=== PATIENT | female | born 1940 | race Caucasian/White ===

== ENCOUNTER 2018-01-12 11:00 | Emergency (ER) | payer MEDICARE, MEDICAID ==
[2018-01-12 11:46] LABS: BILIRUBIN,URINE NEGATIVE (NEGATIVE); GLUCOSE, URINE (UA) NEGATIVE (NEGATIVE); KETONES,URINE (UA) NEGATIVE (NEGATIVE); LEUKOCYTE ESTERASE, URINE SMALL (NEGATIVE); NITRITE,URINE NEGATIVE (NEGATIVE); OCCULT BLOOD,URINE NEGATIVE (NEGATIVE); PH,URINE 7.5 PH (5.0-7.5); PROTEIN,URINE NEGATIVE (NEGATIVE); UROBILINOGEN,URINE 0.2 (NORMAL) E.U./dL (NORMAL)
[2018-01-12 11:46] LABS: BASOPHILS # (AUTO) 0.1 10^3/uL (0.0-0.1); EOSINOPHILS # (AUTO) 0.2 10^3/uL (0.0-0.7); EOSINOPHILS % (AUTO) 2.7 %; HGB - HEMOGLOBIN 14.6 g/dL (12.0-16.0); LYMPHOCYTES # (AUTO) 2.2 10^3/uL (1.5-3.5); LYMPHOCYTES % (AUTO) 27.8 %; MEAN CORPUSCULAR HEMOGLOBIN 32.2 pg (27.0-31.0); MEAN CORPUSCULAR HGB CONC 34.5 g/dL (32.0-36.0); MEAN CORPUSCULAR VOLUME 93.4 fL (81.0-99.0); MEAN PLATELET VOLUME 7.8 fL (7.9-10.8); MONOCYTES # (AUTO) 0.5 10^3/uL (0.0-1.0); MONOCYTES % (AUTO) 6.2 %; NEUTROPHILS % (AUTO) 62.3 %; PLT - PLATELET COUNT 231 10^3/uL (130-450); RED BLOOD COUNT 4.54 10^6/uL (4.20-5.40); RED CELL DISTRIBUTION WIDTH 13.3 % (12.0-15.0)
[2018-01-12 11:57] LABS: BACTERIA,URINE Rare /HPF (None Seen); CLARITY,URINE CLEAR (CLEAR); RBC,URINE 0-5 /HPF (0-5); SQUAMOUS EPITHELIAL CELL,UR MOD Squamous (<= Few); STARCH,URINE PRESENT; WBC CLUMPS,URINE PRESENT
[2018-01-12 11:58] LABS: ALBUMIN 4.5 g/dL (3.2-5.5); ALBUMIN/GLOBULIN RATIO 1.5 (1.0-2.2); BILIRUBIN,TOTAL 0.7 mg/dL (0.2-1.0); CALCIUM 9.9 mg/dL (8.5-10.3); CREATININE 0.7 mg/dL (0.4-1.0); TOTAL PROTEIN 7.5 g/dL (6.7-8.2)
[2018-01-12] MEDS ORDERED: KETOROLAC 60 MG/2 ML VIAL IM STA (12:59)
[2018-01-12] MEDS ORDERED: cefTRIAXone 1 GM VIAL IM STA (12:59)
[2018-01-12] MEDS ORDERED: LIDOCAINE 1% 2 ML VIAL SUBQ ONE (12:59)
--- NOTE | 2018-01-12 13:13 | ED Physician Documentation ---
PD HPI ABD PAIN - Stated complaint Stated Complaint: R BACK/SIDE PX-LIGHT BOWEL MOVEMENT - Chief complaint Chief Complaint: Abd Pain - History obtained from History obtained from: Patient, Family - History of Present Illness Timing - onset: How many days ago (4) Timing - duration: Days (4) Timing - details: Gradual onset, Waxing and waning Pain level max: 9 Pain level now: 8 Quality: Aching, Pain Location: Other (R flank) Radiation: Other (non-radiating) Improved by: Other (nothing) Worsened by: Moving, Palpation Associated symptoms: No: Fever, Nausea, Vomiting, Hematemesis, Diarrhea, Constipation, Melena, Hematochezia, Dysuria, Hematuria, Chest pain, Dizzy Similar symptoms before: Has not had sx before Recently seen: Not recently seen Review of Systems Ten Systems: 10 systems reviewed and negative Constitutional: denies: Fever, Chills Ears: denies: Ear pain Nose: denies: Rhinorrhea / runny nose, Congestion Throat: denies: Sore throat Cardiac: denies: Chest pain / pressure Respiratory: denies: Cough GI: denies: Constipation, Diarrhea : denies: Dysuria Skin: denies: Rash Musculoskeletal: denies: Neck pain Neurologic: denies: Focal weakness, Numbness, Headache PD PAST MEDICAL HISTORY - Past Medical History Cardiovascular: Hypertension Endocrine/Autoimmune: Type 2 diabetes - Past Surgical History Past Surgical History: Yes /NURSE ORTHO: Dilation and currettage, 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 HEENT: Tonsil/Adenoidectomy - Present Medications Home Medications: Ambulatory Orders Medication Instructions Recorded Confirmed Ascorbic Acid [Vitamin C] 01/12/18 Cefdinir 300 mg PO BID #28 capsule 01/12/18 Cholecalciferol (Vitamin D3) 01/12/18 [Vitamin D3] Cholecalciferol (Vitamin D3) 01/12/18 [Vitamin D3] Cinnamon Bark [Cinnamon] 01/12/18 Lisinopril 10 mg PO 01/12/18 Magnesium 483 mg 01/12/18 Meloxicam [Mobic] 15 mg PO DAILY PRN #20 tablet 01/12/18 Potassium Gluconate 01/12/18 Ubidecarenone [Co Q-10] 100 mg PO DAILY 01/12/18 01/12/18 hydroCHLOROthiazide 25 mg PO DAILY 01/12/18 01/12/18 [Hydrochlorothiazide] - Allergies Allergies/Adverse Reactions: Allergies Allergy/AdvReac Type Severity Reaction Status Date / Time No Known Drug Allergies Allergy Verified 01/12/18 11:15 - Social History Does the pt smoke?: No Smoking Status: Never smoker Does the pt drink ETOH?: Yes Does the pt have substance abuse?: No - POLST Patient has POLST: No PD ED PE NORMAL - Vitals Vital signs reviewed: Yes - General General: Alert and oriented X 3, No acute distress, Well developed/nourished - HEENT HEENT: Moist mucous membranes - Neck Neck: Supple, no meningeal sign - Cardiac Cardiac: RRR - Respiratory Respiratory: No respiratory distress, Clear bilaterally - Abdomen Abdomen: Soft, Non tender, Non distended - Back Back: No spinal TTP, Other (R CVAT) - Derm Derm: Warm and dry - Neuro Neuro: Alert and oriented X 3 Results - Vitals Vitals: Vital Signs - 24 hr 01/12/18 11:05 Temperature 36.1 C L Heart Rate 90 Respiratory 20 Rate Blood Pressure 224/115 H O2 Saturation 100 Oxygen O2 Source Room air - Labs Labs: Laboratory Tests 01/12/18 01/12/18 01/12/18 11:37 11:37 11:38 WBC 8.0 RBC 4.54 Hgb 14.6 Hct 42.4 MCV 93.4 MCH 32.2 H MCHC 34.5 RDW 13.3 Plt Count 231 MPV 7.8 L Neut # (Auto) 5.0 Lymph # (Auto) 2.2 [place] # (Auto) 0.5 Eos # (Auto) 0.2 Baso # (Auto) 0.1 Absolute Nucleated RBC 0.00 Nucleated RBC % 0.0 Sodium 138 Potassium 4.0 Chloride 98 L Carbon Dioxide 29 Anion Gap 11.0 BUN 9 Creatinine 0.7 Estimated GFR (MDRD) 81 L Glucose 222 H Calcium 9.9 Total Bilirubin 0.7 AST 44 H ALT 28 Alkaline Phosphatase 102 Total Protein 7.5 Albumin 4.5 Globulin 3.0 Albumin/Globulin Ratio 1.5 Lipase 36 Urine Color LIGHT YELLOW Urine Clarity CLEAR Urine pH 7.5 Ur Specific [place] 1.010 Urine Protein NEGATIVE Urine Glucose (UA) NEGATIVE Urine Ketones NEGATIVE Urine Occult Blood NEGATIVE Urine Nitrite NEGATIVE Urine Bilirubin NEGATIVE Urine Urobilinogen 0.2 (NORMAL) Ur Leukocyte Esterase SMALL H Urine RBC 0-5 Urine WBC 11-25 H Urine WBC Clumps PRESENT Ur Squamous Epith Cells MOD Squamous H Urine Bacteria Rare Urine Starch PRESENT Ur Microscopic Review INDICATED Urine Culture Comments NOT INDICATED PD MEDICAL DECISION MAKING - ED course Complexity details: reviewed results, re-evaluated patient, considered differential, d/w patient ED course: Patient is a 69-year-old female who presents to the emergency department with right-sided flank pain for the past 4 days. Worse at night. Worse with palpation and movement. Has felt more tired than usual. Appears to have a UTI consistent with pyelonephritis. It is not tender at McBurney's point or in the right upper quadrant to suggest cholecystitis. Does have right-sided CVA tenderness. No evidence of ureteral stone. Will place her on antibiotics and follow-up closely with her doctor. Given Rocephin here. Patient counseled regarding signs and symptoms for which I believe and urgent re-evaluation would be necessary. Patient with good understanding of and agreement to plan and is comfortable going home at this time This document was made in part using voice recognition software. While efforts are made to proofread this document, sound alike and grammatical errors may occur. - Sepsis Event Vital Signs: Vital Signs - 24 hr 01/12/18 11:05 Temperature 36.1 C L Heart Rate 90 Respiratory 20 Rate Blood Pressure 224/115 H O2 Saturation 100 Oxygen O2 Source Room air Departure - Departure Disposition: 01 Home, Self Care Clinical Impression: Pyelonephritis Condition: Good Instructions: ED Kidney Infec Female Follow-Up: your,doctor in 1 week [Other] Prescriptions: Cefdinir 300 mg PO BID #28 capsule Meloxicam [Mobic] 15 mg PO DAILY PRN #20 tablet PRN Reason: pain Comments: Your prescriptions were sent to [facility] today. Take all antibiotics until gone. Return if you worsen, especially for fevers or uncontrolled pain.
[2018-01-12 13:47] VITALS: BP 199/118
== END 2018-01-12 13:46 | disposition home or self-care (01) ==
LOC: ED 11:00
DX: N12 Tubulo-interstitial nephritis, not specified as acute or chronic (principal)
CPT/HCPCS: 36415; 80053; 81001; 81003; 83690; 85025; 87086; 96372; 99283

== ENCOUNTER 2018-06-04 13:18 | Emergency (ER) | payer MEDICARE, MEDICAID ==
[2018-06-04 14:47] LABS: BILIRUBIN,URINE NEGATIVE (NEGATIVE); CLARITY,URINE CLEAR (CLEAR); GLUCOSE, URINE (UA) >=1000 mg/dL (NEGATIVE); KETONES,URINE (UA) NEGATIVE (NEGATIVE); LEUKOCYTE ESTERASE, URINE NEGATIVE (NEGATIVE); NITRITE,URINE NEGATIVE (NEGATIVE); OCCULT BLOOD,URINE NEGATIVE (NEGATIVE); PROTEIN,URINE NEGATIVE (NEGATIVE); UROBILINOGEN,URINE 0.2 (NORMAL) E.U./dL (NORMAL)
--- NOTE | 2018-06-04 15:20 | ED Physician Documentation ---
PD HPI BACK PAIN - Stated complaint Stated Complaint: BACK PX - Chief complaint Chief Complaint: Back Pain - History obtained from History obtained from: Patient - History of Present Illness Timing - onset: Other (For the last 5-7 days this 77 -year-old woman has had left flank pain that is not motion related. It has been constant. It radiates a little bit to the left lower quadrant. Associated with fatigue and malaise but no urinary symptoms although she says it similar to prior pyelonephritis.) Review of Systems Ten Systems: 10 systems reviewed and negative Constitutional: reports: Fatigue. denies: Fever, Chills GI: reports: Abdominal Pain. 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 HEENT: Tonsil/Adenoidectomy - Present Medications Home Medications: Ambulatory Orders Medication Instructions Recorded Confirmed Ascorbic Acid [Vitamin C] 01/12/18 Cefdinir 300 mg PO BID #28 capsule 01/12/18 Cholecalciferol (Vitamin D3) 01/12/18 [Vitamin D3] Cholecalciferol (Vitamin D3) 01/12/18 [Vitamin D3] Cinnamon Bark [Cinnamon] 01/12/18 Lisinopril 10 mg PO 01/12/18 Magnesium 483 mg 01/12/18 Meloxicam [Mobic] 15 mg PO DAILY PRN #20 tablet 01/12/18 Potassium Gluconate 01/12/18 Ubidecarenone [Co Q-10] 100 mg PO DAILY 01/12/18 01/12/18 hydroCHLOROthiazide 25 mg PO DAILY 01/12/18 01/12/18 [Hydrochlorothiazide] - Allergies Allergies/Adverse Reactions: Allergies Allergy/AdvReac Type Severity Reaction Status Date / Time No Known Drug Allergies Allergy Verified 06/04/18 13:31 - Social History Does the pt smoke?: No Smoking Status: Never smoker Does the pt drink ETOH?: Yes Does the pt have substance abuse?: No - POLST Patient has POLST: No PD ED PE NORMAL - Vitals Vital signs reviewed: Yes - General General: Alert and oriented X 3, No acute distress - Abdomen Abdomen: Normal bowel sounds, Soft, Non tender - Back Back: No CVA TTP, No spinal TTP - Derm Derm: No rash - Neuro Neuro: Alert and oriented X 3, Normal speech Results - Vitals Vitals: Vital Signs - 24 hr 06/04/18 13:27 Temperature 36.6 C Heart Rate 85 Respiratory 18 Rate Blood Pressure 215/106 H O2 Saturation 95 Oxygen O2 Source Room air - Labs Labs: Laboratory Tests 06/04/18 06/04/18 06/04/18 14:42 15:52 15:52 WBC 9.1 RBC 4.58 Hgb 14.7 Hct 42.8 MCV 93.5 MCH 32.2 H MCHC 34.4 RDW 13.0 Plt Count 218 MPV 7.8 L Neut # (Auto) 6.4 Lymph # (Auto) 2.0 [place] # (Auto) 0.5 Eos # (Auto) 0.2 Baso # (Auto) 0.1 Absolute Nucleated RBC 0.01 Nucleated RBC % 0.1 Sodium 136 Potassium 4.0 Chloride 97 L Carbon Dioxide 30 Anion Gap 9.0 BUN 15 Creatinine 0.7 Estimated GFR (MDRD) 81 L Glucose 247 H Calcium 9.6 Total Bilirubin 0.7 AST 38 ALT 27 Alkaline Phosphatase 95 Total Protein 7.3 Albumin 4.0 Globulin 3.3 Albumin/Globulin Ratio 1.2 Lipase 38 Urine Color YELLOW Urine Clarity CLEAR Urine pH 6.0 Ur Specific [place] 1.020 Urine Protein NEGATIVE Urine Glucose (UA) >=1000 H Urine Ketones NEGATIVE Urine Occult Blood NEGATIVE Urine Nitrite NEGATIVE Urine Bilirubin NEGATIVE Urine Urobilinogen 0.2 (NORMAL) Ur Leukocyte Esterase NEGATIVE Ur Microscopic Review NOT INDICATED Urine Culture Comments NOT INDICATED - Rads (name of study) CT KUB Radiology: EMP read contemporaneously (NAD) PD MEDICAL DECISION MAKING - ED course ED course: This is a 77-year-old woman who presents with left flank pain, she says it similar to prior episodes of pyelonephritis. There is no evidence of UTI on her urinalysis and more workup was done given her age and hyperglycemia which was without acute emergent findings. She was advised that she needs primary care to manage her diabetes. She is resistant to taking medications for diabetes. Departure - Departure Disposition: Home, Self Care Clinical Impression: Uncontrolled hypertension Diabetes type 2, uncontrolled Qualifiers: Glycemic state: with hyperglycemia Qualified Code(s): E11.65 - Type 2 diabetes mellitus with hyperglycemia Back pain Qualifiers: Back pain location: low back pain Chronicity: acute Back pain laterality: left Sciatica presence: without sciatica Qualified Code(s): M54.5 - Low back pain Condition: Stable Record reviewed to determine appropriate education?: Yes Instructions: ED Acute Pain [facility] Follow-Up: Malcolm Tafoya MD [Credentialed Staff Provider] - Alayna Corea PA [Provider Admit Priv/Credential] -
--- NOTE | 2018-06-04 15:50 | CT Report ---
Reason: L flank pain Procedure Date: 06/04/2018 Accession Number: [id number] / [id number] Procedure: CT - Abdomen/Pelvis W/O CPT Code: FULL RESULT: EXAM: CT ABDOMEN AND PELVIS (CT KUB) WITHOUT CONTRAST. EXAM DATE: 06/04/2018 03:33 PM. CLINICAL HISTORY: 77-year-old female with left flank pain. COMPARISONS: Pelvic ultrasound 11/21/2010 11:10 AM. TECHNIQUE: Routine axial helical CT imaging was performed through the abdomen and pelvis without IV contrast. Reconstructions: Coronal and sagittal. In accordance with CT protocol optimization, one or more of the following dose reduction techniques were utilized for this exam: automated exposure control, adjustment of mA and/or KV based on patient size, or use of iterative reconstructive technique. FINDINGS: Lung Bases: Unremarkable. Right Kidney/Ureter: Benign-appearing simple cysts inferior pole posteriorly 7 mm in diameter. No solid mass. No stones, hydronephrosis, or hydroureter. No perinephric fat stranding. Left Kidney/Ureter: No mass or cyst. No stones, hydronephrosis, or hydroureter. No perinephric fat stranding. Other Solid Organs: Noncontrast images of the solid organs are grossly unremarkable. Gallbladder/Bile Ducts: Unremarkable. Peritoneal Cavity: No free fluid, free air or latasha adenopathy. Bowel is grossly unremarkable. No diverticular disease, inflammatory bowel disease or obstruction. No excess colonic fecal content. Pelvic Organs: Contracted urinary bladder. Uterus appears to be surgically absent. No adnexal mass, cyst or free fluid. No lymphadenopathy. Vasculature: Unremarkable for age. No aneurysm. Other: Osseous structures unremarkable for age. No acute process or metastatic disease. IMPRESSION: Unremarkable noncontrast CT scan of the urinary tract. No renal or ureteral calculi, hydronephrosis or hydroureter. No other demonstrated cause for left flank pain. RADIA
[2018-06-04 15:58] LABS: BASOPHILS # (AUTO) 0.1 10^3/uL (0.0-0.1); BASOPHILS % (AUTO) 0.6 %; EOSINOPHILS # (AUTO) 0.2 10^3/uL (0.0-0.7); EOSINOPHILS % (AUTO) 2.1 %; HGB - HEMOGLOBIN 14.7 g/dL (12.0-16.0); LYMPHOCYTES % (AUTO) 21.6 %; MEAN CORPUSCULAR HEMOGLOBIN 32.2 pg (27.0-31.0); MEAN CORPUSCULAR HGB CONC 34.4 g/dL (32.0-36.0); MEAN CORPUSCULAR VOLUME 93.5 fL (81.0-99.0); MEAN PLATELET VOLUME 7.8 fL (7.9-10.8); MONOCYTES # (AUTO) 0.5 10^3/uL (0.0-1.0); MONOCYTES % (AUTO) 5.7 %; NEUTROPHILS # (AUTO) 6.4 10^3/uL (1.5-6.6); PLT - PLATELET COUNT 218 10^3/uL (130-450); RED BLOOD COUNT 4.58 10^6/uL (4.20-5.40); WHITE BLOOD COUNT 9.1 x10^3/uL (4.8-10.8)
[2018-06-04 16:12] LABS: ALBUMIN/GLOBULIN RATIO 1.2 (1.0-2.2); BILIRUBIN,TOTAL 0.7 mg/dL (0.2-1.0); CALCIUM 9.6 mg/dL (8.5-10.3); CREATININE 0.7 mg/dL (0.4-1.0); TOTAL PROTEIN 7.3 g/dL (6.7-8.2)
[2018-06-04 16:38] VITALS: BP 136/75
== END 2018-06-04 16:55 | disposition home or self-care (01) ==
LOC: ED 13:18
DX: M54.5 Low back pain (principal); I10 Essential (primary) hypertension; E11.65 Type 2 diabetes mellitus with hyperglycemia; Z87.440 Personal history of urinary (tract) infections
CPT/HCPCS: 36415; 74176; 80053; 81001; 81003; 83690; 85025; 87086; 99282; 99283

== ENCOUNTER 2018-06-17 13:32 | Outpatient (CLI) | payer MEDICARE, MEDICAID ==
[2018-06-17 18:50] LABS: ALBUMIN 4.1 g/dL (3.2-5.5); ALBUMIN/GLOBULIN RATIO 1.3 (1.0-2.2); BILIRUBIN,TOTAL 0.9 mg/dL (0.2-1.0); CALCIUM 9.4 mg/dL (8.5-10.3); CREATININE 0.7 mg/dL (0.4-1.0); TOTAL PROTEIN 7.2 g/dL (6.7-8.2)
[2018-06-17 20:43] LABS: HB2 TOTAL 16.1 g/dL; HEMOGLOBIN A1C 1.27 g/dL; HEMOGLOBIN A1C % 9.4 % (4.6-6.2)
== END 2018-06-17 13:33 | disposition home or self-care (01) ==
LOC: LAB.F 13:32
PROVIDERS: ATTEND Internal Medicine
DX: E11.9 Type 2 diabetes mellitus without complications (principal)
CPT/HCPCS: 36415; 80053; 83036

== ENCOUNTER 2018-08-09 22:10 | Outpatient (CLI) | payer MEDICARE, MEDICAID ==
--- NOTE | 2018-08-10 01:24 | Ultrasound Report ---
Reason: PARTIAL RETINAL ARTERY OCCLUSION,RIGHT EYE Procedure Date: 08/09/2018 Accession Number: [id number] / [id number] Procedure: US - Carotid Doppler Complete CPT Code: FULL RESULT: EXAM: BILATERAL CAROTID AND VERTEBRAL ARTERY DUPLEX DOPPLER ULTRASOUND: EXAM DATE: 08/09/2018 10:15 PM CLINICAL HISTORY: Partial retinal artery occlusion, right eye. COMPARISON: None. TECHNIQUE: Grayscale imaging, color Doppler, and duplex spectral Doppler were used to evaluate the carotid and vertebral arteries bilaterally. Static images were obtained. FINDINGS: Moderate irregular calcified carotid plaquing is seen on the right. A large amount of irregular calcified carotid plaquing is seen on the left. Normal antegrade flow is present in bilateral vertebral arteries. VELOCITIES (cm/sec): Right CCA mid: PSV 84.7 cm/sec CCA dist: PSV 61.9 cm/sec ICA prox: PSV 66.3 cm/sec, EDV 14.5 cm/sec ICA mid: PSV 60.8 cm/sec, EDV 15.2 cm/sec ICA dist: PSV 70.7 cm/sec, EDV 17.7 cm/sec ECA: PSV 80.9 cm/sec Vert: PSV 33.4 cm/sec ICA/CCA: 0.8 Left CCA mid: PSV 101.1 cm/sec CCA dist: PSV 67.6 cm/sec ICA prox: PSV 77.6 cm/sec, EDV 19.2 cm/sec ICA mid: PSV 70.6 cm/sec, EDV 20.1 cm/sec ICA dist: PSV 72.4 cm/sec, EDV 21.8 cm/sec ECA: PSV 82.9 cm/sec Vert: PSV 55.8 cm/sec ICA/CCA: 0.8 ICA diameter stenosis: Right: <50% by velocity and <70% by NASCET criteria. Left: <50% by velocity and <70% by NASCET criteria. IMPRESSION: 1. Left greater than right bilateral carotid artery plaquing. 2. In the right carotid artery there are no elevated carotid artery velocities to suggest hemodynamically significant stenosis. 3. In the left carotid artery there are no elevated carotid artery velocities to suggest hemodynamically significant stenosis. 4. Normal antegrade flow is present in bilateral vertebral arteries. General Recommendations: Stenosis =50% ICA - Follow-up ultrasound 6-12 months Stenosis <50% ICA - High Risk Patient with plaque - Follow-up ultrasound 1-2 years Normal Study but High Risk Patient - Follow-up ultrasound 3-5 years Management recommendations and diagnostic criteria are based on current IAC endorsed standards in Carotid Artery Stenosis: Grayscale and Doppler Ultrasound Diagnosis. Validated velocity measurements with angiographic measurements and velocity criteria are extrapolated from diameter data as defined by the Society of Radiologists in Ultrasound Consensus Conference Radiology 2003; 229;340-346. RADIA
== END 2018-08-09 22:11 | disposition home or self-care (01) ==
LOC: DI 22:10
PROVIDERS: ATTEND Optometrist Corneal and Contact Management
DX: I65.23 Occlusion and stenosis of bilateral carotid arteries (principal); H34.211 Partial retinal artery occlusion, right eye
CPT/HCPCS: 93880

== ENCOUNTER 2019-06-28 13:56 | Emergency (ER) | payer MEDICAID, MEDICARE ==
[2019-06-28 14:19] VITALS: BP 145/78
--- NOTE | 2019-06-28 15:09 | ED Physician Documentation ---
PD HPI LOWER EXT INJURY - Stated complaint Stated Complaint: BILAT KNEE PAIN - Chief complaint Chief Complaint: Ext Problem - History obtained from History obtained from: Patient, Family - History of Present Illness PD HPI LOW EXT INJURY LOCATION: Right, Knee Type of injury: Twist Where injury occurred: Home Timing - onset: How many days ago (6) Timing - duration: Days (6) Timing - details: Abrupt onset, Still present Improved by: Rest, Immobilization Worsened by: Moving, Palpating Associated symptoms: No: Weakness, Numbness, Tingling, Swelling Contributing factors: No: Anticoagulated Similar symptoms before: Has not had sx before Recently seen: Not recently seen - Additional information Additional information: Previously well 79-year-old female with a history of hypertension has developed some pain in her right knee. She usually has pain in her left knee and that is her bad knee and she has had to favor her right knee now and she has now obtained a walker. She states she is not exactly sure how she injured her knee she was walking when it happened and she had sudden onset of pain. She did not have a catastrophic fall. She does not have specific swelling she does sometimes have a feeling of instability of the knee she has pain to move the knee through a range of motion and to bear weight. 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), Uterine cancer : Incontinence HEENT: None Psych: None Musculoskeletal: Osteoarthritis, Rheumatoid arthritis, Chronic back pain Derm: Psoriasis - Past Surgical History Past Surgical History: Yes General: Colonoscopy 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, 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 HEENT: Tonsil/Adenoidectomy - Present Medications Home Medications: Ambulatory Orders Medication Instructions Recorded Confirmed Ascorbic Acid [Vitamin C] 01/12/18 Cefdinir 300 mg PO BID #28 capsule 01/12/18 Cholecalciferol (Vitamin D3) 01/12/18 [Vitamin D3] Cholecalciferol (Vitamin D3) 01/12/18 [Vitamin D3] Cinnamon Bark [Cinnamon] 01/12/18 Magnesium 483 mg 01/12/18 Meloxicam [Mobic] 15 mg PO DAILY PRN #20 tablet 01/12/18 Potassium Gluconate 01/12/18 Ubidecarenone [Co Q-10] 100 mg PO DAILY 01/12/18 01/12/18 hydroCHLOROthiazide 25 mg PO DAILY 01/12/18 01/12/18 [Hydrochlorothiazide] lisinopriL [Lisinopril] 10 mg PO 01/12/18 - Allergies Allergies/Adverse Reactions: Allergies Allergy/AdvReac Type Severity Reaction Status Date / Time No Known Drug Allergies Allergy Verified 06/28/19 14:19 - Social History Does the pt smoke?: No Smoking Status: Never smoker Does the pt drink ETOH?: Yes Does the pt have substance abuse?: No - Immunizations Immunizations are current?: No Immunizations: TDAP >10years/unknown, Other immun current - POLST Patient has POLST: No PD ED PE NORMAL - Vitals Vital signs reviewed: Yes (tachy and hypertensive ) - General General: Alert and oriented X 3, No acute distress, Well developed/nourished - HEENT HEENT: Atraumatic, PERRL, EOMI - Respiratory Respiratory: No respiratory distress - Derm Derm: Normal color, Warm and dry, No rash - Extremities Extremities: No deformity, No tenderness to palpate, No edema, No calf tenderness / cord, Other (The right knee is examined there is pain to palpation over the distal thigh above the patella the anterior drawer and medial lateral collateral ligaments appear stable. There is no obvious palpable joint effusion the kneecap appears to ride centrally there is pain with range of motion to flexion extension. Distal neurovascular components are intact.) - Neuro Neuro: Alert and oriented X 3, No motor deficit, No sensory deficit, Normal speech Eye Opening: Spontaneous Motor: Obeys Commands Verbal: Oriented GCS Score: 15 - Psych Psych: Normal mood, Normal affect Results - Vitals Vitals: Vital Signs - 24 hr 06/28/19 14:17 Temperature 36.4 C L Heart Rate 119 H Respiratory 16 Rate Blood Pressure 145/78 H O2 Saturation 97 Oxygen O2 Source Room air - Rads (name of study) knees Radiology: Prelim report reviewed (Impression: 1. No evidence of fracture or dislocation. 2. No evidence of significant degenerative disease. 3. There is a large right suprapatellar joint effusion.), EMP read indepedently, See rad report PD MEDICAL DECISION MAKING - ED course Complexity details: reviewed results, re-evaluated patient, considered differential, d/w patient, d/w family ED course: 79-year-old female with right knee pain after twisting has pain when she is weightbearing her knee examination is without evidence of ligamentous laxity or joint effusion. I suspect she may have some internal derangement with a suprapatellar joint effusion and I have asked her to follow-up with orthopedics for potential MRI scanning of the knee. In the meantime we have administered dexamethasone 10 mg orally here in the emergency department and she will continue to use her walker. Departure - Departure Disposition: 01 Home, Self Care Clinical Impression: Internal derangement of knee Qualifiers: Laterality: right Qualified Code(s): M23.91 - Unspecified internal derangement of right knee Condition: Stable Instructions: ED Meniscal Injury Knee Poss Follow-Up: [facility] [Provider Group]
[2019-06-28] MEDS ORDERED: DEXAMETHASONE 10 MG/ML VIAL PO STA (15:38)
[2019-06-28] MEDS ORDERED: CHERRY SYRUP 10 ML UDC PO ONE (15:38)
--- NOTE | 2019-06-28 15:49 | XRAY Report ---
Reason: knee pain cant walk Procedure Date: 06/28/2019 Accession Number: [id number] / [id number] Procedure: XR - Knee 4 View BILAT CPT Code: Final Report FULL RESULT: EXAMS: 1. Right Knee Radiography 2. Left Knee Radiography EXAM DATE:06/28/2019 03:24 PM. CLINICAL HISTORY:Knee pain COMPARISON: None. TECHNIQUE: 3 views each. FINDINGS: Right Knee: Bones: Normal. No fractures or bone lesions. Joints: There is a large suprapatellar joint effusion. Joint spacing is maintained. Soft Tissues: Normal. No soft tissue swelling. Left Knee: Bones: Normal. No fractures or bone lesions. Joints: Normal. No effusion. No subluxations. Soft Tissues: Normal. No soft tissue swelling. IMPRESSION: 1. No evidence of fracture or dislocation. 2. No evidence of significant degenerative disease. 3. There is a large right suprapatellar joint effusion. RADIA
== END 2019-06-28 16:02 | disposition home or self-care (01) ==
LOC: ED 13:56
DX: M23.91 Unspecified internal derangement of right knee (principal); M25.461 Effusion, right knee; I10 Essential (primary) hypertension; E11.42 Type 2 diabetes mellitus with diabetic polyneuropathy
CPT/HCPCS: 73564; 99283; 99284; A9270

== ENCOUNTER 2021-05-26 16:21 | Outpatient (CLI) | payer MEDICARE | END 2021-05-26 16:22 | disposition critical access hospital (66) | LOC: EMS 16:21 | DX: R42 Dizziness and giddiness (principal); R61 Generalized hyperhidrosis; R73.9 Hyperglycemia, unspecified | CPT/HCPCS: A0425; A0427 ==

== ENCOUNTER 2021-05-26 16:39 | Observation (INO) | payer MEDICARE ==
[2021-05-26 17:12] LABS: BASOPHILS # (AUTO) 0.1 10^3/uL (0.0-0.1); BASOPHILS % (AUTO) 0.6 %; EOSINOPHILS # (AUTO) 0.1 10^3/uL (0.0-0.7); HCT - HEMATOCRIT 44.2 % (37.0-47.0); LYMPHOCYTES # (AUTO) 1.5 10^3/uL (1.5-3.5); LYMPHOCYTES % (AUTO) 14.4 %; MEAN CORPUSCULAR HEMOGLOBIN 32.1 pg (27.0-31.0); MEAN CORPUSCULAR HGB CONC 33.9 g/dL (32.0-36.0); MEAN CORPUSCULAR VOLUME 94.6 fL (81.0-99.0); MEAN PLATELET VOLUME 9.9 fL (7.9-10.8); MONOCYTES # (AUTO) 0.6 10^3/uL (0.0-1.0); MONOCYTES % (AUTO) 5.5 %; NEUTROPHILS # (AUTO) 8.2 10^3/uL (1.5-6.6); NEUTROPHILS % (AUTO) 78.1 %; PLT - PLATELET COUNT 211 10^3/uL (130-450); RED BLOOD COUNT 4.67 10^6/uL (4.20-5.40); RED CELL DISTRIBUTION WIDTH 12.6 % (12.0-15.0); WHITE BLOOD COUNT 10.5 x10^3/uL (4.8-10.8)
--- NOTE | 2021-05-26 17:29 | XRAY Report ---
PROCEDURE: Chest 1 View X-Ray INDICATIONS: Chest Pain TECHNIQUE: One view of the chest was acquired. COMPARISON: None FINDINGS: Surgical changes and devices: None. Lungs and pleura: No pleural effusions or pneumothorax. Lungs are clear. Mild underlying vascular congestion present. Atherosclerotic vascular calcification noted in the aortic arch. Mediastinum: Mediastinal contours appear normal. Heart size is normal. Bones and chest wall: No suspicious bony lesions. Overlying soft tissues appear unremarkable. IMPRESSION: Mild underlying vascular congestion. Aortic atherosclerosis Reviewed by: Adi Perez MD on 05/26/2021 4:28 PM [place] Approved by: Adi Perez MD on 05/26/2021 4:28 PM [place] Station ID: [id number]
[2021-05-26 17:33] LABS: ALBUMIN/GLOBULIN RATIO 1.3 (1.0-2.2); BILIRUBIN,TOTAL 1.1 mg/dL (0.2-1.0); CALCIUM 9.6 mg/dL (8.5-10.3); CREATININE 1.1 mg/dL (0.4-1.0); POTASSIUM 3.8 mmol/L (3.5-5.0); TOTAL PROTEIN 7.1 g/dL (6.7-8.2)
[2021-05-26] MEDS ORDERED: ASPIRIN CHEW 81 MG TABLET PO STA (17:48)
--- NOTE | 2021-05-26 17:48 | ED Physician Documentation ---
History of Present Illness - Stated complaint Stated Complaint: DIZZY - Chief complaint Chief Complaint: Neuro - Additonal information Additional information: 80-year-old female presents the emergency department for evaluation of acute onset of dizziness and not feeling well. She was in her usual state of health this morning while shopping at [employer] but then suddenly she began to feel diaphoretic and just poor. She denies that she was having any chest pain or shortness of air. Simply states that "I needed to sit down" She felt wobbly. No nausea or vomiting. She requested the staff at [facility] to help her find a place to sit down. After period of rest she did not improve until EMS arrived. Blood glucose was 65 Patient has a history of hypertension for which she takes losartan, but has not been compliant recently. She also has a history of diabetes but does not take the Metformin as it made her have diarrhea. She does take a number of supplements and vitamins. Non-smoker. No tobacco use. Review of Systems Constitutional: reports: Other (diaphoresis). denies: Fever, Chills Eyes: reports: Reviewed and negative Ears: reports: Reviewed and negative Throat: reports: Reviewed and negative Cardiac: reports: Reviewed and negative Respiratory: reports: Reviewed and negative GI: reports: Reviewed and negative : reports: Reviewed and negative Skin: reports: Reviewed and negative PD PAST MEDICAL HISTORY - Past Medical History Past Medical History: Yes Cardiovascular: Hypertension Respiratory: None Neuro: Peripheral neuropathy, Other Endocrine/Autoimmune: Type 2 diabetes GI: Colon polyps, Hemorrhoids NEUROLOGY STROKE PHYSICIAN: Miscarriage(s), Uterine cancer : Incontinence HEENT: None Psych: None Musculoskeletal: Osteoarthritis, Rheumatoid arthritis, Chronic back pain Derm: Psoriasis - Past Surgical History Past Surgical History: Yes General: Colonoscopy Ortho: Other /NEUROLOGY STROKE PHYSICIAN: Dilation and currettage, 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 HEENT: Tonsil/Adenoidectomy - Present Medications Home Medications: Ambulatory Orders Medication Instructions Recorded Confirmed Ascorbic Acid [Vitamin C] 01/12/18 Cefdinir 300 mg PO BID #28 capsule 01/12/18 Cholecalciferol (Vitamin D3) 01/12/18 [Vitamin D3] Cholecalciferol (Vitamin D3) 01/12/18 [Vitamin D3] Cinnamon Bark [Cinnamon] 01/12/18 Magnesium 483 mg 01/12/18 Meloxicam [Mobic] 15 mg PO DAILY PRN #20 tablet 01/12/18 Potassium Gluconate 01/12/18 Ubidecarenone [Co Q-10] 100 mg PO DAILY 01/12/18 01/12/18 hydroCHLOROthiazide 25 mg PO DAILY 01/12/18 01/12/18 [Hydrochlorothiazide] lisinopriL [Lisinopril] 10 mg PO 01/12/18 - Allergies Allergies/Adverse Reactions: Allergies Allergy/AdvReac Type Severity Reaction Status Date / Time No Known Drug Allergies Allergy Verified 06/28/19 14:19 - Social History Does the pt smoke?: No Smoking Status: Never smoker Does the pt drink ETOH?: Yes Does the pt have substance abuse?: No - Immunizations Immunizations are current?: No Immunizations: TDAP >10years/unknown, Other immun current - POLST Patient has POLST: No PD ED PE EXPANDED - General General: Alert, No acute distress, Other (obese) - Cardiac Cardiac: Regular Rate, Murmur Present, Radial strong equal, Pedal strong equal, Cap refill < 2 sec - Respiratory Respiratory: Clear to ausultation mary alice. No: Distress, Labored - Abdomen Abdomen: Normal Bowel sounds. No: Tender to palpation - Derm Derm: Normal color, Warm and dry. No: Rash - Neuro Neuro: Alert and Oriented X 3, CNII-XII intact - GCS Eye Opening: Spontaneous Motor: Obeys Commands Verbal: Oriented Total: 15 Results - Vitals Vitals: Vital Signs - 24 hr 05/26/21 05/26/21 16:45 17:31 Temperature 37.2 C Heart Rate 105 H Heart Rate [ 86 Sitting] Heart Rate [ 82 Standing] Heart Rate [ 76 Supine] Respiratory 18 Rate Blood Pressure 195/73 H Blood Pressure 194/85 H [Sitting] Blood Pressure 174/110 H [Standing] Blood Pressure 186/78 H [Supine] O2 Saturation 99 Oxygen O2 Source Room air - EKG (time done) 1706 Rate: Rate (enter#) (79) Rhythm: NSR [place]: Anterior hemiblock Intervals: Prolonged VA, RBBB. No: Prolonged QT Ischemia: Non specific changes (Borderline ST elevations lateral leads) Compare to prior EKG: Old EKG unavailable Computer interpretation: Agree with computer - Labs Labs: Laboratory Tests 05/26/21 05/26/21 05/26/21 17:06 17:06 17:06 WBC 10.5 RBC 4.67 Hgb 15.0 Hct 44.2 MCV 94.6 MCH 32.1 H MCHC 33.9 RDW 12.6 Plt Count 211 MPV 9.9 Neut # (Auto) 8.2 H Lymph # (Auto) 1.5 Grundy # (Auto) 0.6 Eos # (Auto) 0.1 Baso # (Auto) 0.1 Absolute Nucleated RBC 0.00 Nucleated RBC % 0.0 Sodium 134 L Potassium 3.8 Chloride 96 L Carbon Dioxide 26 Anion Gap 12.0 BUN 21 H Creatinine 1.1 H Estimated GFR (MDRD) 48 L Glucose 267 H Calcium 9.6 Total Bilirubin 1.1 H AST 25 ALT 18 Alkaline Phosphatase 82 Troponin I High Sens 25.4 H* B-Natriuretic Peptide Total Protein 7.1 Albumin 4.0 Globulin 3.1 Albumin/Globulin Ratio 1.3 Lipase 33 05/26/21 05/26/21 17:06 19:00 WBC RBC Hgb Hct MCV MCH MCHC RDW Plt Count MPV Neut # (Auto) Lymph # (Auto) Grundy # (Auto) Eos # (Auto) Baso # (Auto) Absolute Nucleated RBC Nucleated RBC % Sodium Potassium Chloride Carbon Dioxide Anion Gap BUN Creatinine Estimated GFR (MDRD) Glucose Calcium Total Bilirubin AST ALT Alkaline Phosphatase Troponin I High Sens 30.0 H* B-Natriuretic Peptide 216 H Total Protein Albumin Globulin Albumin/Globulin Ratio Lipase - Rads (name of study) CXR Radiology: Final report received (mild underlying vascular congestion, aortic atherosclerosis) PD MEDICAL DECISION MAKING - ED course Complexity details: reviewed old records, reviewed results, re-evaluated patient, d/w patient ED course: 80-year-old female presents the emergency department for evaluation of sudden onset diaphoresis and feeling generally unwell while shopping at [employer]. She said that she felt weak and needed to sit down. After sitting for a few minutes the symptoms did not pass thus 911 was called. On presentation to the emergency department she states that most of the symptoms have dissipated. Her screening EKG is nonischemic. Her initial troponin was 25 and on repeat was 30. This is essentially flat. Patient continues to deny any chest pain or shortness of air. However she does have a longstanding history of hypertension and poorly controlled diabetes. While here in the emergency department she did remain clinically stable. At 1 point she requested to get up and use the restroom. When she was brought back to bed and put on the monitor she was noted to be in a sinus tachycardia with a rate of about 140. She denied any chest pain or shortness of air. With just a minute or so of rest her heart rate reduced to normal. Given the mildly elevated troponin she was given 325 of aspirin. However as a diabetic she may present atypically for cardiac conditions. I discussed this case briefly with Dr. Pruitt on-call. Patient will be admitted overnight on observation status for planned stress test in a.m. Patient is agreeable to this. Departure - Departure Disposition: ED Place in Observation Clinical Impression: Elevated troponin, Poorly controlled diabetes mellitus Hypertension Qualifiers: Hypertension type: unspecified Qualified Code(s): I10 - Essential (primary) hypertension Discharge Date/Time: 05/26/21 21:05
[2021-05-26] MEDS ORDERED: LOSARTAN 50 MG TABLET PO STA (18:01)
[2021-05-26] MEDS ORDERED: ONDANSETRON ODT 4 MG TABLET TL PRN (20:04)
[2021-05-26] MEDS ORDERED: ACETAMINOPHEN 325 MG TABLET PO PRN (20:04)
[2021-05-26] MEDS ORDERED: ONDANSETRON 4 MG/2 ML VIAL IVP PRN (20:04)
[2021-05-26] MEDS ORDERED: SODIUM CHLORIDE FLUSH 0.9% 10 ML SYRINGE IVP PRN (20:04)
[2021-05-26] MEDS ORDERED: amLODIPine 5 MG TABLET PO STA (20:09)
--- NOTE | 2021-05-26 20:17 | HISTORY & PHYSICAL EXAMINATION ---
Chief Complaint - Chief Complaint Chief Complaint: Feeling unwell History of Present Illness - Admitted From Admitted From:: Home - History Obtained From Records Reviewed: Yes History obtained from: Patient, ER Provider, EMR - History of Present Illness HPI Comment/Other: This is a 80-year-old female with a past medical history significant for type 2 diabetes mellitus, hypertension who presents today after feeling unwell while shopping. She states that she was at [facility] this evening when she began to become diaphoretic and just felt unwell. She states is not uncommon for her to become diaphoretic at [facility] as she feels it is always quite warm there but today was worse than usual. She felt a little nauseous but no vomiting or abdominal pain. She had no chest pain, dyspnea, lightheadedness, dizziness. She had no syncope or felt like she was going to pass out. She states she felt better after she left [facility] and got some fresh air. She feels back to her baseline now. She states she normally never gets any chest pain with activity. She has never had a stress test before. She states she has whitecoat syndrome and that her blood pressure is always elevated in the 190s to 200s at her doctor's office or in the hospital but at home it is usually in the 140s. She knows she is a poorly controlled diabetic but has not tolerated Metformin in the past due to abdominal discomfort and diarrhea. She has a fear of injections and does not want to take insulin. She is concern about trying other oral hypoglycemic agents due to potential side effects. She does not take aspirin or a statin. She believes her HDL and LDL have been acceptable in the past. She currently has no primary care doctor. We discussed goals of care and she would like to be a full code. History - Past Medical History Cardiovascular: reports: Hypertension, Murmur Respiratory: reports: None Neuro: reports: Peripheral neuropathy Endocrine/Autoimmune: reports: Type 2 diabetes GI: reports: Colon polyps, Hemorrhoids HEART DOCTOR: reports: Miscarriage(s), Uterine cancer : reports: Incontinence HEENT: reports: None Psych: reports: None Musculoskeletal: reports: Osteoarthritis, Rheumatoid arthritis, Chronic back pain Derm: reports: Psoriasis MRSA Hx?: No - Past Surgical History General: reports: Colonoscopy Ortho: reports: Other /HEART DOCTOR: reports: Dilation and currettage, 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 HEENT: reports: Tonsil/Adenoidectomy - Family & Social History Family History Comment/Other: Her father passed with the age of 95. He had a history of stroke and she believes possibly heart disease. Living arrangement: At home Living Situation: Alone Social History Notes: She lives at home alone. She has never smoked or consumed alcohol. - POLST Patient has POLST: No Meds/Allgy - Home Medications Home Medications: Ambulatory Orders Medication Instructions Recorded Confirmed Ascorbic Acid [Vitamin C] 01/12/18 Cefdinir 300 mg PO BID #28 capsule 01/12/18 Cholecalciferol (Vitamin D3) 01/12/18 [Vitamin D3] Cholecalciferol (Vitamin D3) 01/12/18 [Vitamin D3] Cinnamon Bark [Cinnamon] 01/12/18 Magnesium 483 mg 01/12/18 Meloxicam [Mobic] 15 mg PO DAILY PRN #20 tablet 01/12/18 Potassium Gluconate 01/12/18 Ubidecarenone [Co Q-10] 100 mg PO DAILY 01/12/18 01/12/18 hydroCHLOROthiazide 25 mg PO DAILY 01/12/18 01/12/18 [Hydrochlorothiazide] lisinopriL [Lisinopril] 10 mg PO 01/12/18 - Allergies Allergies/Adverse Reactions: Allergies Allergy/AdvReac Type Severity Reaction Status Date / Time No Known Drug Allergies Allergy Verified 06/28/19 14:19 Review of Systems - Constitutional Constitutional: reports: Diaphoresis. denies: Fatigue, Fever, Chills - Ears, Nose & Throat Ears, Nose & Throat: denies: Nasal discharge, Postnasal drainage - Cardiovascular Cariovascular: denies: Chest pain, Edema, Lightheadedness, Syncope, Exertional dyspnea, Decr. exercise tolerance - Respiratory Respiratory: denies: Cough, SOB at rest, SOB with exertion - Gastrointestinal Gastrointestinal: reports: Nausea. denies: Abdominal pain, Constipation, Diarrhea, Change in bowel habits, Vomiting - Genitourinary Genitourinary: denies: Dysuria, Frequency, Urgency - Integumentary Integumentary: denies: Rash - Neurological Neurological: reports: Numbness. denies: General weakness, Focal weakness - Hematologic/Lymphatic Hematologic/Lymphatic: denies: Blood clots - All Other Systems All Other Systems: reports: Reviewed and negative Prior Level of Functionality: She is independent with her ADL's. Exam - Vital Signs Reviewed Vital Signs: Yes Vital Signs: Vital Signs x48h Temp Pulse Pulse Pulse Pulse Resp BP 05/26/21 17:31 86 82 76 05/26/21 16:45 37.2 C 105 H 18 195/73 H BP BP BP Pulse Ox 05/26/21 17:31 194/85 H 174/110 H 186/78 H 05/26/21 16:45 99 - Physical Exam General Appearance: positive: No acute distress, Alert Eyes Bilateral: positive: Normal inspection, Conjunctivae nml ENT: positive: ENT inspection nml Neck: positive: Nml inspection Respiratory: positive: No respiratory distress. negative: Wheezes, Rales Cardiovascular: positive: Regular rate & rhythm, Systolic murmur. negative: Tachycardia Skin: positive: Warm, Dry Neurologic/Psychiatric: positive: Motor nml. negative: Disoriented to person Conclusion/Plan - Problem List (1) Elevated troponin Conclusion/Plan: Although she does not present with chest pain, we are concerned for atypical symptoms given her age and diabetes. She did have diaphoresis and nausea. Troponins only mildly elevated and her EKG does not suggest ischemia but we will place her in observation for stress test. Will order Lexiscan for the morning. N.p.o. at midnight. Check lipid panel. Echocardiogram in the morning. (2) Uncontrolled hypertension Conclusion/Plan: Her blood pressure is poorly controlled with systolics in the 180s to 190s. She is on losartan at home. She was given 50 mg of losartan in the emergency department and I will add amlodipine 5 mg. We will continue her home dose of losartan in the morning which I believe is 100 mg. We will continue the amlodipine and consider a beta-mich pending the results of her stress test. (3) Diabetes type 2, uncontrolled Conclusion/Plan: Her blood glucose is nearly 300 here in the emergency department. Her last A1c was nearly 10%. She not on any hypoglycemic agents and cannot tolerate metformin in the past due to diarrhea. We discussed potential benefits of using another agent such as glipizide or insulin. She is concerned that she would not be able to administer insulin at home herself due to the fear of injections. We discussed starting her on Lantus this evening to monitor her blood glucose while on insulin. She prefers to hold off on this and just monitor her blood glucose without the use of insulin. She preferred to try to control it with diet. Qualifiers: Glycemic state: with hyperglycemia Qualified Code(s): E11.65 - Type 2 diabetes mellitus with hyperglycemia (4) Murmur, cardiac Conclusion/Plan: She has had this her whole life. The echocardiogram tomorrow will evaluate this. - Lab Results Lab results reviewed: Yes Fish Bones: 05/26/21 17:06 05/26/21 17:06 - Diagnostic Imaging Results Diagnostic Imaging Results: positive: Final report reviewed - EKG Results EKG Interpreted Independently: Yes EKG Findings: EKG shows a sinus rhythm with a prolonged FL interval. Right bundle branch block but no evidence of ischemia. Core Measures - Anticipated LOS I expect patient to be DC'd or transferred within 96 hours.: Yes - Issues Hospital Issues and Management Plan: 80-year-old female presents with diaphoresis and nausea found to be hypertensive with concern for atypical symptoms for heart disease. We will place in observation for stress test. - DVT/VTE - Prophylaxis VTE/DVT Device ordered at admit?: Yes VTE/DVT Prophylaxis med ordered at admit?: Yes
[2021-05-26] MEDS ORDERED: INSULIN ASPART 300 UNIT/3 ML PEN SUBQ SCH (21:00)
[2021-05-26] MEDS ORDERED: INSULIN GLARGINE 300 UNIT/3 ML PEN SUBQ SCH (21:00)
[2021-05-26 21:29] LABS: B. PARAPERTUSSIS- RESP PCR PAN NOT DETECTED; B. PERTUSSIS- RESP PCR PANEL NOT DETECTED; C. PNEUMONIAE- RESP PCR PANEL NOT DETECTED; CORONAVIRUS 229E-RESP PCR NOT DETECTED; CORONAVIRUS HKU1-RESP PCR NOT DETECTED; CORONAVIRUS NL63-RESP PCR NOT DETECTED; CORONAVIRUS OC43-RESP PCR NOT DETECTED; HUMAN METAPNEUMOVIRUS NOT DETECTED; INFLUENZA A- RESP PCR PANEL NOT DETECTED; INFLUENZA B - RESP PCR PANEL NOT DETECTED; M. PNEUMONIAE- RESP PCR PANEL NOT DETECTED; PARAINFLUENZA VIRUS 1 NOT DETECTED; PARAINFLUENZA VIRUS 2 NOT DETECTED; PARAINFLUENZA VIRUS 3 NOT DETECTED; PARAINFLUENZA VIRUS 4 NOT DETECTED; RHINOVIRUS/ENTEROVIRUS NOT DETECTED; RSV- RESP PCR PANEL NOT DETECTED; SARS-CoV-2 -RESP PCR PANEL NOT DETECTED
[2021-05-26 23:06] LABS: ESTIMATED AVERAGE GLUCOSE 235 mg/dL (70-100); HEMOGLOBIN A1c% 9.8 % (4.27-6.07)
[2021-05-27] MEDS: SODIUM CHLORIDE FLUSH 0.9% 10 ML SYRINGE IVP SCH ×2 (01:15→15:26)
[2021-05-27 05:46] LABS: BASOPHILS # (AUTO) 0.1 10^3/uL (0.0-0.1); BASOPHILS % (AUTO) 0.7 %; EOSINOPHILS # (AUTO) 0.3 10^3/uL (0.0-0.7); EOSINOPHILS % (AUTO) 2.4 %; HCT - HEMATOCRIT 38.4 % (37.0-47.0); LYMPHOCYTES # (AUTO) 2.8 10^3/uL (1.5-3.5); LYMPHOCYTES % (AUTO) 26.5 %; MEAN CORPUSCULAR HEMOGLOBIN 32.1 pg (27.0-31.0); MEAN CORPUSCULAR HGB CONC 33.9 g/dL (32.0-36.0); MEAN CORPUSCULAR VOLUME 94.8 fL (81.0-99.0); MEAN PLATELET VOLUME 10.4 fL (7.9-10.8); MONOCYTES # (AUTO) 0.7 10^3/uL (0.0-1.0); MONOCYTES % (AUTO) 6.7 %; NEUTROPHILS # (AUTO) 6.6 10^3/uL (1.5-6.6); NEUTROPHILS % (AUTO) 63.3 %; PLT - PLATELET COUNT 196 10^3/uL (130-450); RED BLOOD COUNT 4.05 10^6/uL (4.20-5.40); RED CELL DISTRIBUTION WIDTH 12.6 % (12.0-15.0); WHITE BLOOD COUNT 10.4 x10^3/uL (4.8-10.8)
[2021-05-27 05:55] LABS: BUN - BLOOD UREA NITROGEN 23 mg/dL (6-20); CALCIUM 9.2 mg/dL (8.5-10.3); CARBON DIOXIDE - CO2 26 mmol/L (21-32); CHLORIDE 100 mmol/L (101-111); CHOL/HDL RATIO 3.3 (<4.4); CHOLESTEROL 200 mg/dL; CREATININE 0.9 mg/dL (0.4-1.0); GFR - MDRD 60 (>89); GLUCOSE 219 mg/dL (70-100); HDL CHOLESTEROL 61 mg/dL; LDL CHOLESTEROL,CALCULATED 113 mg/dL; LDL/HDL RATIO 1.9 (<4.4); POTASSIUM 3.7 mmol/L (3.5-5.0); SODIUM 136 mmol/L (135-145); TRIGLYCERIDES 131 mg/dL; VLDL CHOLESTEROL 26 mg/dL
[2021-05-27] MEDS ORDERED: LOSARTAN 50 MG TABLET PO SCH ×2 (09:00)
[2021-05-27] MEDS ORDERED: amLODIPine 5 MG TABLET PO SCH (09:00)
--- NOTE | 2021-05-27 12:45 | CONSULTATION NOTE ---
Consultation Report: Called for assistance with pIV placement. Patient with history of difficult IV starts and multiple failed attempts on this visit. 22ga@L wrist not sufficient per Daniela Cruz. Attempt x3 at L FA with and w/o US, unsuccessful. Attempt x2 with and w/o US @R FA. 20ga 2.25 Accucath Emre placed with US. Easily aspirates and flushes with cap, secured.
[2021-05-27] MEDS: LIDOCAINE PATCH 5% TOP PRN ×2 (13:50→18:31)
[2021-05-27] MEDS ORDERED: REGADENOSON 0.4 MG/5 ML SYRINGE IVP ONE ×2 (14:26→17:06)
--- NOTE | 2021-05-27 16:29 | CARDIAC PROCEDURE NOTE ---
Stress Test Report Service Date: 05/27/21 Service Time: 02:30 Ordering Provider: Tushar Silvestre MD Indication for Test: assess for ischemia contributing to episode of nausea, diaphoresis, uncontrolled DM with small rise in troponins Significant Medical History: This is a leonela elderly female who has been fighting morbid obesity all of her life. Never able to successfully keep off weight. She has been in uncontrolled diabetic for many many years. She hates medications and the side effects of medications really frightened her. She did try Metformin for a while and it bothered her so much she does not want to try traditional "big Pharma" medications. She also has high blood pressure, hyperlipidemia. The blood pressure will get worse when she is at a doctor's office or in the hospital. She has "whitecoat hypertension". While shopping, she became more diaphoretic than usual. What was new was a sense of nausea as well. There is no chest pain. No jaw pain. No palpitations. She did not feel like she was going to pass out. When she was outside in the parking lot, and got some cool pressure, she felt a lot better.She called EMS, and they picked her up and brought her to our emergency room. Temperature was 37.2. Heart rate 105. Blood pressure 195/73 with respirations 18 and 99% on room air. She is 5 foot 5 inches tall and weighs 101.151 kg.EKG had normal sinus rhythm with a prolonged SD interval. She has a right bundle branch block. No acute ST-T wave changes. There is no previous EKG for comparison. An echocardiogram was done and she has severe concentric left ventricular hypertrophy. Overall left ventricular systolic function is normal with an ejection fraction of 60 to 65%. Pseudonormal LV filling pattern consistent with grade 2 diastolic dysfunction. No regional wall motion abnormalities. Mild aortic stenosis. Troponin #1 is 30.0. The second troponin is 40.5. A third set is 48.2. Cholesterol is 200, LDL 113, VLDL is 26, HDL 61. Cardiac Risk Factors: Hypertension, age, hyperlipidemia, uncontrolled diabetes Type of Stress Test: Pharmacologic Stress Test with MPI Pharmacologic Agent: Lexiscan Procedure: After signing informed consent, the patient underwent resting imaging and then underwent chemical stimulation.During stimulation, resting heart rate was 67.She peaked at 84. Resting blood pressure was 195/75 and with stimulation she was 165/56. There were subtle ST depression that was downsloping in V1 through V3. She complained of chest tightness, that was diffuse. A smoky taste in the back of her mouth. And legs that felt weak. The test was terminated due to completeness of injection. There were no arrhythmias. She maintained sinus rhythm throughout. Summary: Abnormal resting EKG. Nonspecific. Definite response to chemical stimulation with minimal changes on EKG. Hypertensive at rest with decrease in blood pressure with stimulation. No ischemic changes by EKG criteria were seen. Analysis of gated nuclear images were done by radiology. See separate report for more detail. Their summary: Probably normal myocardial perfusion images. Moderate to large sized, fixed perfusion defect in the anterior septum and anterolateral wall that is most likely caused by breast attenuation artifact. No reversible perfusion defect to suggest myocardial ischemia. Normal left ventricular volume and systolic function. Ejection fraction 57%. Overall this leonela lady is at increased risk for myocardial infarction. She has uncontrolled hypertension, uncontrolled type 2 diabetes mellitus and has had peripheral neuropathy as well as left ventricular concentric hypertrophy develop. At this time she can be discharged and to be followed up for risk factor management. I have stressed to her that goal for blood pressure should be less than 130/70. That her A1c needs to be less than 7%. She also was identified as having a new diagnosis of mild aortic stenosis that should be followed up periodically with her primary care provider or cardiology. Since she does not have a primary care provider or therapeutic recreation specialist she will need to establish yourself with 1 and she promises to do so.
--- NOTE | 2021-05-27 17:18 | Nuclear Medicine Report ---
PROCEDURE: Rest and pharmacological stress myocardial perfusion SPECT with gated imaging and ejection fraction INDICATIONS: Elevated troponin. Atypical symptoms RADIOPHARMACEUTICAL: 13.5 mCi Tc-99m Myoview IV at rest and 35.4 mCi Tc-99m Myoview IV at peak exerc ise. [id number] was performed. TECHNIQUE: Radiopharmaceutical was injected at peak stress test, and also at rest. SPECT images wer e obtained. SPECT myocardial perfusion images were displayed in short axis, horizontal long axis, an d vertical long axis views. Gated images were reviewed using Auto[employer] software. COMPARISON: None available. FINDINGS: Raw data: There is good myocardial labeling by radiotracer. No significant motion artifacts. Lung- to-heart ratio is 0.33 (normal is less than 0.46 for tetrafosmin tracer). Prominent breast attenuati on artifact is present. Left ventricle function: Gated images demonstrate normal left ventricle wall thickening. No segment al wall motion abnormality. No transient ischemic dilation; TID is 1.07 (normal less than 1.30). Th e left ventricle resting end-diastolic volume is normal. Left ventricle stress ejection fraction is 57%; normal values are above 45%. Myocardial perfusion: There is [id number], moderately severe, fixed defect in the anterior se ptum and anterior lateral wall, most likely caused by breast attenuation artifact is evident on the right images. No reversible perfusion defect to suggest myocardial ischemia. IMPRESSION: 1. Probably normal myocardial perfusion images. [id number] sized, fixed perfusion defect in th e anterior septum and anterolateral wall is most likely caused by breast attenuation artifact. 2. No reversible perfusion defect to suggest myocardial ischemia. 3. Normal left ventricular volume and systolic function. 4. Please correlate with stress EKG result. PQRS ATTESTATIONS: Measure 322 - Is this imaging test primarily performed on a low-risk surgery patient for preoperative evaluation within 30 days preceding their low-risk non-cardiac surgery? Low-risk surgery is defined as cardiac or myocardial infarction less than 1%, including (but not limited to) endoscopic pr ocedures, superficial procedures, cataract surgery, and excisional breast surgery: Answer: No Measure 323 - Is this imaging test performed primarily for the monitoring of an asymptomatic patient who had percutaneous coronary intervention on the visit date or within 2 years of the visit date? An swer: No Measure 324 - Is this imaging test performed primarily for the initial detection and risk assessment on an asymptomatic, low coronary heart disease patient? Low CHD risk definition = clinicians should consider the maximum number of available patient factors used to estimate risk based on Serafina (A TP III criteria), typically age, gender, diabetes, smoking status, and use of blood pressure medicati on, and integrate age appropriate estimates for missing elements, such as LDL or standard blood press ure. Answer: No Reviewed by: Kristie Ham MD on 05/27/2021 5:17 PM PST Approved by: Kristie Ham MD on 05/27/2021 5:17 PM PST Station ID: [id number]
[2021-05-27] MEDS ORDERED: LIDOCAINE PATCH 5% TOP PRN (17:55)
--- NOTE | 2021-05-27 17:55 | Discharge Plan ---
Discharge Plan Problem Reviewed?: Yes Disposition: Home, Self Care Condition: Fair Prescriptions: amLODIPine [Norvasc] 5 mg PO DAILY #30 tablet Diet: Diabetic Activity Restrictions: Activity as Tolerated Shower Restrictions: No Driving Restrictions: No Health Concerns: You were worried that you were having a heart attack because you became suddenly sweaty at [facility]. While you do have problems with sweating with exertion, and have done so in [facility] before, this was worse than usual and accompanied by nausea. You are not having any chest pain. You called for ambulance and an ambulance brought you to the emergency room where you have a blood pressure of 195/73. You state that you have whitecoat hypertension and that it is a normal response for you when you are around medical providers. EKG did not show any acute severe changes of heart attack. Blood tests were done and there was a mild Elevation in muscle enzymes. As such we placed you under observation to make sure you were not having heart attack and your muscle enzyme test started going back down again. You are an uncontrolled diabetic. Normal percentage of saturated hemoglobin is less than 7%. Yours is 9.8% which means that your estimated average glucose is 235 just walking around. Cholesterol was 200. Bad cholesterol of LDL was 113. Good cholesterol of HDL was 61. Triglycerides were 131. You underwent a stress test with nuclear medicine imaging and chemical stimulation.That stress test showed no reversible arterial blockages that we needed to worry about right now. However your heart muscle is enlarged from probably a chronically elevated blood pressure. Plan of Treatment: 1. Please establish yourself with a primary care provider. Your last primary care provider was Dr. Tafoya but he has retired. There are still providers in that office that you can see. That would be part of [facility]. I really encourage you to follow-up with him. You have been relying on them to fill your losartan prescription for 2 years. You have not seen a doctor for 2 years. Other providers in the [place] area would be [facility]. There are some phenomenal nurse practitioners in that group as well as physicians that could take care of you. You need to get your blood pressure and your glucose under control. 2. You asked what other treatments are are for diabetes besides Metformin. I gave you a list of drug classes from [employer] website. 3. You also have a new diagnosis of mild aortic stenosis. That means the largest valve in your heart, the last valve were blood empties, is starting to get calcified and small. There is nothing you need to do about that right now other than establish yourself with a therapy aide and get periodic follow-up with that. You should have an echocardiogram about once a year. As the valve area get smaller and smaller the echocardiograms will become more frequent. 4. Since your blood pressure was very elevated, we did add another blood pressure pill. We added a calcium channel mich called Norvasc. Main side effects with that if you are going to have side effects is mild ankle swelling and headache. Care Goals: You stated that you would like to control your diabetes and blood pressure through weight loss and exercise. Although you have failed in the past to do so, you say you are going to try with greater concentration in the future. Assessment: Patient states that she is an avid reader, does a lot of research on her own, and will research these topics for herself. No Smoking: If you smoke, Please STOP! Call for help.
--- NOTE | 2021-05-27 18:05 | DISCHARGE SUMMARY ---
Discharge Summary Admit Date: 05/26/21 Discharge Date: 05/27/21 Discharging Provider: Iman Quiñonez MD Primary Care Provider: [facility] Code Status: Attempt Resuscitation Condition at Discharge: Fair Discharge Disposition: 01 Home, Self Care - DIAGNOSES Discharge Diagnoses with Status of Each Condition: 1. Elevated troponin 2. Uncontrolled hypertension 3. Type 2 diabetes mellitus, uncontrolled with hyperglycemia, with comp lications of peripheral neuropathy 4. Mild aortic stenosis 5. Morbid obesity 6. Chronic diastolic heart failure - HPI History of Present Illness: This is a 80-year-old female with a past medical history significant for type 2 diabetes mellitus, hypertension who presents today after feeling unwell while shopping. She states that she was at [facility] this evening when she began to become diaphoretic and just felt unwell. She states is not uncommon for her to become diaphoretic at [facility] as she feels it is always quite warm there but today was worse than usual. She felt a little nauseous but no vomiting or abdominal pain. She had no chest pain, dyspnea, lightheadedness, dizziness. She had no syncope or felt like she was going to pass out. She states she felt better after she left [facility] and got some fresh air. She feels back to her baseline now. She states she normally never gets any chest pain with activity. She has never had a stress test before. She states she has whitecoat syndrome and that her blood pressure is always elevated in the 190s to 200s at her doctor's office or in the hospital but at home it is usually in the 140s. She knows she is a poorly controlled diabetic but has not tolerated Metformin in the past due to abdominal discomfort and diarrhea. She has a fear of injections and does not want to take insulin. She is concern about trying other oral hypoglycemic agents due to potential side effects. She does not take aspirin or a statin. She believes her HDL and LDL have been acceptable in the past. She currently has no primary care doctor. We discussed goals of care and she would like to be a full code. - Past Medical History Cardiovascular: reports: Hypertension, Murmur Respiratory: reports: None Neuro: reports: Peripheral neuropathy Endocrine/Autoimmune: reports: Type 2 diabetes GI: reports: Colon polyps, Hemorrhoids SKIING INSTRUCTOR: reports: Miscarriage(s), Uterine cancer : reports: Incontinence HEENT: reports: None Psych: reports: None Musculoskeletal: reports: Osteoarthritis, Rheumatoid arthritis, Chronic back pain Derm: reports: Psoriasis MRSA Hx?: No - Past Surgical History General: reports: Colonoscopy Ortho: reports: Other /SKIING INSTRUCTOR: reports: Dilation and currettage, 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 HEENT: reports: Tonsil/Adenoidectomy - CONSULTS | PROCEDURES Procedures: 1. Chest x-ray with mild underlying vascular congestion. Aortic ather osclerosis. 2. Nuclear medicine stress test. Done with Lexiscan. EKG with subtle ST depression in V1 through V3 but not diagnostic for ischemia. Follow-up nuclear medicine study showed probable normal myocardial perfusion images. Moderate to large size, fixed perfusion defect, in the anterior septum and anterolateral wall that is most likely caused by breast attenuation artifact. No reversible perfusion defect to suggest myocardial ischemia. Normal left ventricular volume and systolic function. 3 Preliminary echocardiogram report. Must be reviewed for final interpretation by PCP. Severe concentric left ventricular hypertrophy. Ejection fraction normal at 60 to 65%. Pseudonormal LV filling pattern consistent with grade 2 diastolic dysfunction. No regional wall motion abnormalities. Moderate to severe increase in left atrial volume index. Mild aortic stenosis with a peak/m juan pressure gradient of 31 mmHg / 18 mmHg. Aortic valve area by continuity equation is 1.61 cm. - HOSPITAL COURSE Hospital Course: The patient was placed in observation. Troponin were 30.0, 40.5, 48.2, and 38.6. There were no arrhythmias on telemetry. Nuclear medicine stress test is as above. Patient is identified as having uncontrolled hypertension and diabetes and she is adamant that she does not want us to give her treatment for her diabetes at this time. She would like to pursue "natural remedies". A long 45-minute discussion was held on uncontrolled diabetes and its long-term consequences. Hemoglobin A1c is 9.8%. She states that she is still been getting her blood pressure medications refilled by her primary care provider's office even though he retired 2 years ago. I explained that she really needs to be seen at least once a year for her to continue to get her medications. Norvasc 5 mg tablets were added to her regimen to lower blood pressure. The results of her echocardiogram were shared with her as well as her stress test. I have also given her a list of all the medications listed in up-to-date for the management of diabetes mellitus. I have asked her to do her research, and decide which one might be tolerable for her. She is very fixated on not liking Metformin. But she has never tried any other medication. She also states that she is terrified of needles and does not want to do insulin. Echocardiogram identifies her of having mild aortic stenosis. Normal ejection fraction. Grade 2 diastolic dysfunction. She is asked to please establish yourself with a PCP who can then refer her to cardiology to get periodic updates on her echo. At discharge temperature was 36.7. Heart rate 74. Blood pressure 154/68. Respirations 16 and 100% on room air. During her stay her blood pressure peaked at 201/80. She is insistent that this is only whitecoat hypertension. I referenced her echocardiogram with concentric left ventricular hypertrophy. Explained to her why her muscle is big. Lungs are clear. Regular rate and rhythm. She is a morbidly obese female whose abdominal pannus is quite large. But nontender, no masses palpable but difficult to assess because of the large panus. Legs are large, trace edema. She is mobile. Able to sit up in bed, feed herself. Stand and walk to the bathroom on her own without any ataxia. She is discharged in stable condition and asked to establish yourself with a primary care provider who then can refer her to cardiology. I have also asked her to get her A1c below 7%. And consider doing ambulatory blood pressure monitoring to establish how much her blood pressure may be out of control when it is not in a doctor's office. Because there is evidence of grade 2 diastolic dysfunction on her echo, she would be a candidate for further diuretic therapy. She is very resistant to any medication until she is researched side effects. - ALLERGIES Allergies/Adverse Reactions: Allergies Allergy/AdvReac Type Severity Reaction Status Date / Time No Known Drug Allergies Allergy Verified 06/28/19 14:19 - MEDICATIONS Home Medications: Ambulatory Orders Medication Instructions Recorded Confirmed Ascorbic Acid [Vitamin C] 01/12/18 Cholecalciferol (Vitamin D3) 01/12/18 [Vitamin D3] Cholecalciferol (Vitamin D3) 01/12/18 [Vitamin D3] Cinnamon Bark [Cinnamon] 01/12/18 Magnesium 483 mg 01/12/18 Meloxicam [Mobic] 15 mg PO DAILY PRN #20 tablet 01/12/18 Potassium Gluconate 01/12/18 Ubidecarenone [Co Q-10] 100 mg PO DAILY 01/12/18 01/12/18 hydroCHLOROthiazide 25 mg PO DAILY 01/12/18 01/12/18 [Hydrochlorothiazide] Lidocaine Patch 5% [Lidoderm Patch] 1 patch TOP DAILY PRN patch 05/27/21 amLODIPine [Norvasc] 5 mg PO DAILY #30 tablet 05/27/21 - LABS Result Diagrams: 05/27/21 04:48 05/27/21 04:48
[2021-05-27 19:22] VITALS: BP 155/78
== END 2021-05-27 19:43 | disposition home or self-care (01) ==
LOC: EDUNIT# → ED 16:39 → MS3 20:04
PROVIDERS: ADMIT Internal Medicine; ATTEND Specialist
DX: R77.8 Other specified abnormalities of plasma proteins (principal); I11.0 Hypertensive heart disease with heart failure; I50.32 Chronic diastolic (congestive) heart failure; E11.65 Type 2 diabetes mellitus with hyperglycemia; E11.42 Type 2 diabetes mellitus with diabetic polyneuropathy; T46.5X6A Underdosing of other antihypertensive drugs, initial encounter; T38.3X6A Underdosing of insulin and oral hypoglycemic [antidiabetic] drugs, initial encounter; Z91.128 Patient's intentional underdosing of medication regimen for other reason; I35.0 Nonrheumatic aortic (valve) stenosis; E66.01 Morbid (severe) obesity due to excess calories; I70.0 Atherosclerosis of aorta; E78.5 Hyperlipidemia, unspecified; Z68.37 Body mass index [BMI] 37.0-37.9, adult
CPT/HCPCS: 36415; 71045; 78452; 80048; 80053; 80061; 83036; 83690; 83880; 84484; 85025; 87631; 93005; 93017; 93306; 99283; 99285; A9270; A9500; G0378; J2785; 0202U; 83721

== ENCOUNTER 2022-04-25 10:50 | Outpatient (CLI) | payer MEDICARE | END 2022-04-25 10:51 | disposition home or self-care (01) | LOC: LAB 10:50 | PROVIDERS: ATTEND Internal Medicine Gastroenterology | DX: Z01.812 Encounter for preprocedural laboratory examination (principal); Z20.822 Contact with and (suspected) exposure to COVID-19 ==

== ENCOUNTER 2022-07-21 12:37 | Outpatient (CLI) | payer MEDICARE, MEDICAID ==
[2022-07-21 14:42] LABS: ALBUMIN 4.2 g/dL (3.2-5.5); ALBUMIN/GLOBULIN RATIO 1.4 (1.0-2.2); BILIRUBIN,TOTAL 0.7 mg/dL (0.2-1.0); CALCIUM 9.9 mg/dL (8.5-10.3); CREATININE 0.9 mg/dL (0.4-1.0); POTASSIUM 4.2 mmol/L (3.5-5.0); TOTAL PROTEIN 7.3 g/dL (6.7-8.2)
[2022-07-21 22:12] LABS: ESTIMATED AVERAGE GLUCOSE 278 mg/dL (70-100); HEMOGLOBIN A1c% 11.3 % (4.27-6.07)
== END 2022-07-21 12:38 | disposition home or self-care (01) ==
LOC: LAB.S 12:37
PROVIDERS: ATTEND Internal Medicine
DX: E11.8 Type 2 diabetes mellitus with unspecified complications (principal)
CPT/HCPCS: 36415; 80053; 83036

== ENCOUNTER 2022-12-09 09:15 | Outpatient (CLI) | payer MEDICARE, MEDICAID | END 2022-12-09 23:59 | disposition short-term general hospital (02) | LOC: EMS 09:15 | DX: S99.912A Unspecified injury of left ankle, initial encounter (principal); W01.0XXA Fall on same level from slipping, tripping and stumbling without subsequent striking against object, initial encounter; Y92.009 Unspecified place in unspecified non-institutional (private) residence as the place of occurrence of the external cause | CPT/HCPCS: A0425; A0429 ==

== ENCOUNTER 2023-01-05 11:03 | Outpatient (CLI) | payer MEDICARE, MEDICAID ==
[2023-01-05 11:10] LABS: BASOPHILS # (AUTO) 0.1 10^3/uL (0.0-0.1); BASOPHILS % (AUTO) 0.9 %; EOSINOPHILS # (AUTO) 0.4 10^3/uL (0.0-0.7); EOSINOPHILS % (AUTO) 4.6 %; HCT - HEMATOCRIT 38.4 % (37.0-47.0); LYMPHOCYTES % (AUTO) 21.9 %; MEAN CORPUSCULAR HEMOGLOBIN 32.2 pg (27.0-31.0); MEAN CORPUSCULAR HGB CONC 33.9 g/dL (32.0-36.0); MEAN PLATELET VOLUME 10.2 fL (7.9-10.8); MONOCYTES # (AUTO) 0.6 10^3/uL (0.0-1.0); MONOCYTES % (AUTO) 6.6 %; NEUTROPHILS # (AUTO) 6.1 10^3/uL (1.5-6.6); NEUTROPHILS % (AUTO) 65.9 %; PLT - PLATELET COUNT 242 10^3/uL (130-450); RED BLOOD COUNT 4.04 10^6/uL (4.20-5.40); RED CELL DISTRIBUTION WIDTH 13.2 % (12.0-15.0); WHITE BLOOD COUNT 9.2 x10^3/uL (4.8-10.8)
[2023-01-05 12:58] LABS: ALBUMIN 4.1 g/dL (3.2-5.5); ALBUMIN/GLOBULIN RATIO 1.6 (1.0-2.2); BILIRUBIN,TOTAL 0.8 mg/dL (0.2-1.0); CALCIUM 10.4 mg/dL (8.5-10.3); CREATININE 0.8 mg/dL (0.6-1.3); MAGNESIUM 1.3 mg/dL (1.7-2.3); TOTAL PROTEIN 6.7 g/dL (6.4-8.9)
== END 2023-01-05 11:04 | disposition home or self-care (01) ==
LOC: LAB.R 11:03
PROVIDERS: ATTEND Registered Nurse
DX: N17.9 Acute kidney failure, unspecified (principal); D51.9 Vitamin B12 deficiency anemia, unspecified; I51.9 Heart disease, unspecified; E55.9 Vitamin D deficiency, unspecified; E61.2 Magnesium deficiency
CPT/HCPCS: 80053; 82306; 82607; 83735; 85025

== ENCOUNTER 2023-02-07 08:00 | Outpatient (CLI) | payer MEDICARE, MEDICAID | END 2023-02-07 23:59 | disposition home or self-care (01) | LOC: LAB 08:00 | DX: M62.81 Muscle weakness (generalized) (principal) | CPT/HCPCS: 36415; 83735 ==

== ENCOUNTER 2023-02-26 13:46 | Outpatient (CLI) | payer MEDICARE, MEDICAID | END 2023-02-26 13:47 | disposition EMS.NT | LOC: EMS 13:46 | DX: Z03.89 Encounter for observation for other suspected diseases and conditions ruled out (principal) ==

== ENCOUNTER 2023-02-27 08:55 | Outpatient (CLI) | payer MEDICARE, MEDICAID | END 2023-02-27 08:56 | disposition critical access hospital (66) | LOC: EMS 08:55 | DX: M54.2 Cervicalgia (principal); M25.511 Pain in right shoulder; W19.XXXA Unspecified fall, initial encounter | CPT/HCPCS: A0425; A0429 ==

== ENCOUNTER 2023-02-27 09:22 | Emergency (ER) | payer MEDICARE, MEDICAID ==
[2023-02-27] MEDS ORDERED: HYDROcod/ACETAM 5/325 MG TABLET PO STA (09:39)
[2023-02-27 09:40] VITALS: BP 131/74; O2SAT 100
--- NOTE | 2023-02-27 09:49 | ED Physician Documentation ---
History of Present Illness - Stated complaint Stated Complaint: FALL/ R SHOULDER/NECK PX - Chief complaint Chief Complaint: Trauma Hd/Nk - History obtained from History obtained from: Patient, EMS - Additonal information Additional information: The patient comes to the emergency department chief complaint of right shoulder pain and neck pain after a sit down fall yesterday. The patient is recovering from a left ankle fracture was just discharged from [facility] a few days ago after staying there for rehab. She states that she has had 2 such falls over the last few days while walking with a walker. She states her legs just get weak and crumple under her. She states that both times she has "sat down hard". The last fall was yesterday and she states that she did not hit anything else, including her head, neck, or shoulder. However, today, she states that she has developed pain in her right shoulder whenever she moves it, as well as some pain and stiffness in her neck and a frontal headache. The patient states that she has a longstanding history of right shoulder issues and that these were exacerbated by her time at [facility], where they would order desk clerk her right arm to help her stand up. Using the walker has also been aggravating her shoulder as well. The patient states she has chronic coccygeal pain and does not feel this is any worse than usual. She felt fine after her initial fall for most of the day yesterday and did not have the pain. No other complaints at this time. PD PAST MEDICAL HISTORY - Past Medical History Past Medical History: Yes Cardiovascular: Hypertension, Murmur Respiratory: None Neuro: Peripheral neuropathy Endocrine/Autoimmune: Type 2 diabetes GI: Colon polyps, Hemorrhoids EVENT TECHNICIAN: Miscarriage(s), Uterine cancer : Incontinence HEENT: None Psych: None Musculoskeletal: Osteoarthritis, Rheumatoid arthritis, Chronic back pain Derm: Psoriasis - Past Surgical History Past Surgical History: Yes General: Colonoscopy Ortho: Other /EVENT TECHNICIAN: Dilation and currettage, 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 HEENT: Tonsil/Adenoidectomy - Present Medications Home Medications: Ambulatory Orders Medication Instructions Recorded Confirmed Ascorbic Acid [Vitamin C] 1,000 mg ORAL DAILY 01/12/18 02/27/23 Cholecalciferol (Vitamin D3) 1,000 units ORAL DAILY 01/12/18 02/27/23 [Vitamin D3] Cinnamon Bark [Cinnamon] 500 mg ORAL DAILY 09/22/18 11/07/23 Magnesium 250 mg ORAL DAILY 01/12/18 02/27/23 Ubidecarenone [Co Q-10] 100 mg PO DAILY 01/12/18 02/27/23 Losartan Potassium 0 mg PO DAILY 02/27/23 02/27/23 - Allergies Allergies/Adverse Reactions: Allergies Allergy/AdvReac Type Severity Reaction Status Date / Time No Known Drug Allergies Allergy Verified 02/27/23 09:29 - Social History Does the pt smoke?: No Smoking Status: Never smoker Does the pt drink ETOH?: No Does the pt have substance abuse?: No - Immunizations Immunizations are current?: No Immunizations: TDAP >10years/unknown, Other immun current - POLST Patient has POLST: No PD ED PE NORMAL - Vitals Vital signs reviewed: Yes - General General: Alert and oriented X 3, No acute distress - HEENT HEENT: Atraumatic, PERRL - Neck Neck: Supple, no meningeal sign, Other (Mild diffuse tenderness over the patient's posterior neck including the bones, but without focality.) - Cardiac Cardiac: RRR, No murmur - Respiratory Respiratory: No respiratory distress, Clear bilaterally - Abdomen Abdomen: Soft, Non tender, Non distended - Derm Derm: Normal color, Warm and dry, No rash, Other (No contusion) - Extremities Extremities: No deformity, No edema, Other (Limited range of motion right shoulder secondary to pain. Diffuse tenderness over the right shoulder including anteriorly, laterally, and posteriorly. No deformity.) - Neuro Neuro: Alert and oriented X 3 - Psych Psych: Normal mood, Normal affect Results - Vitals Vitals: Oxygen O2 Source Room air PD Medical Decision Making - ED course Complexity details: reviewed results, re-evaluated patient, considered differential, d/w patient ED course: The patient was worked up with x-rays of the shoulder and neck and treated with an oral dose of hydrocodone. Her XRs showed degenerative changes, but no acute findings. We discussed at length the pt's home resources, including children in the area, home health assistance, and in-home PT/OT, which is scheduled to start this week. The pt wanted some help with meals, so the director of social media marketing has printed out some resources for the patient in this regard. We have discussed pain control at home with the oxycodone the pt already has for her ankle (but is not using). Departure - Departure Disposition: Home, Self Care Clinical Impression: Right shoulder strain Qualifiers: Encounter type: initial encounter Qualified Code(s): S46.911A - Strain of unspecified muscle, fascia and tendon at shoulder and upper arm level, right arm, initial encounter Cervical strain Qualifiers: Encounter type: initial encounter Qualified Code(s): S16.1XXA - Strain of muscle, fascia and tendon at neck level, initial encounter Condition: Stable Instructions: ED Sprain Strain Neck, ED Shoulder Pain UKO Comments: Your x-rays show some chronic findings but no evidence of an acute injury. It is important that you work on moving your shoulder is much as possible to keep it from becoming scarred up and frozen. You may use the oxycodone that you already have at home, as well as ibuprofen, to help with pain. Please follow-up with your primary doctor as needed for further concerns. Continue your work with physical therapy and continue to use your walker at home to get around. Try to make sure there is a chair nearby where you can sit down if your legs start to feel weak. Forms: PCP List Discharge Date/Time: 02/27/23 12:54
[2023-02-27] MEDS ORDERED: IBUPROFEN 800 MG TABLET PO STA (09:50)
--- NOTE | 2023-02-27 10:18 | XRAY Report ---
PROCEDURE: Cervical Spine 2 View INDICATIONS: pain after fall TECHNIQUE: 3 view(s) of the cervical spine were acquired. COMPARISON: None. FINDINGS: Bones: There is extensive cervical spondylitic change. The lower C-spine is not cleared. No obvious f ractures. Soft tissues: No prevertebral soft tissue swelling. IMPRESSION: Extensive cervical spondylosis. Cannot clear the lower cervical spine. Comment: If clinically suspect significant injury, recommend CT cervical spine. Reviewed by: Blair Pinon MD on 02/27/2023 10:17 AM PST Approved by: Blair Pinon MD on 02/27/2023 10:17 AM PST Station ID: [id number]
--- NOTE | 2023-02-27 10:20 | XRAY Report ---
PROCEDURE: Shoulder 3 View RT INDICATIONS: pain after fall TECHNIQUE: 3 views of the shoulder were acquired. COMPARISON: None. FINDINGS: Bones: No fractures or dislocations. No suspicious bony lesions. Visualized ribs appear intact. No identified fractures. There is a large osteophyte off the inferior humeral head with glenohumeral joint degenerative change. The bones are osteopenic. Soft tissues: No suspicious soft tissue calcifications. The visualized lungs are within normal limi ts. IMPRESSION: Severe glenohumeral joint degenerative change. Osteopenia. No obvious fracture. Comment: If continue to suspect fracture, consider CT shoulder. Reviewed by: Blair Pinon MD on 02/27/2023 10:19 AM [facility] Approved by: Blair Pinon MD on 02/27/2023 10:19 AM [facility] Station ID: [id number]
== END 2023-02-27 12:54 | disposition home or self-care (01) ==
LOC: EDUNIT# → ED 09:22
DX: S46.911A Strain of unspecified muscle, fascia and tendon at shoulder and upper arm level, right arm, initial encounter (principal); S16.1XXA Strain of muscle, fascia and tendon at neck level, initial encounter; W18.30XA Fall on same level, unspecified, initial encounter; Z91.81 History of falling; Y93.01 Activity, walking, marching and hiking; I10 Essential (primary) hypertension; E11.42 Type 2 diabetes mellitus with diabetic polyneuropathy; Z79.899 Other long term (current) drug therapy
CPT/HCPCS: 72040; 73030; 99283; 99284; A9270

== ENCOUNTER 2023-03-08 09:41 | Outpatient (CLI) | payer MEDICARE, MEDICAID ==
--- NOTE | 2023-03-09 13:15 | Ultrasound Report ---
LIMITED ULTRASOUND OF LEFT BREAST: 03/08/2023 CLINICAL: Intermittent pain in left breast. Comparison is made to exams dated: 03/08/2023 mammogram - [facility], 08/12/2020 ma mmogram, 07/12/2018 mammogram, 06/29/2017 mammogram, 05/23/2016 mammogram, and 05/20/2015 mammogram - [facility]. Color flow and real-time ultrasound of the left breast 7 o'clock region were performed. Benson scale images of the real-time examination were reviewed. No sonographic abnormality is seen in the area of clinical concern in the left breast at 7 o'clock, 7 cm from the nipple. IMPRESSION: NEGATIVE No sonographic abnormality in the area of clinical concern. No mammographic or sonographic evidence o f malignancy. Recommend routine annual mammogram screening in 1 year. Clinical follow-up is also recommended, and further management of palpable abnormalities or other foc al signs or symptoms should be based on the results of clinical evaluation. If palpable abnormality o r other concerning symptom persists or progresses, further clinical evaluation should be considered. Findings and recommendations were conveyed to the patient during today's evaluation. This exam was interpreted at Station ID: [id number]. Electronically Signed By: Indigo Chapman M.D., PH.D eb/:03/08/2023 12:51:15 letter sent: No_Letter Ultrasound BI-RADS: 1 Negative BI-RADS CATEGORY: (1) - 1 Mammogram [id number] 1 year screening LATERALITY: (B)
--- NOTE | 2023-03-09 13:15 | Mammography Report ---
BILATERAL DIGITAL DIAGNOSTIC MAMMOGRAM 3D/2D: 03/08/2023 CLINICAL: Focal left breast pain. Due for bilateral. Comparison is made to exams dated: 08/12/2020 mammogram, 07/12/2018 mammogram, and 06/29/2017 mammogram - [facility]. Both breasts are heterogeneously dense, which may obscure small masses (category c / 51-75% glandular tissue). A BB marker was placed in the area of clinical concern in the left breast, and no mammographic abnorm ality is identified. No significant masses, calcifications, or other findings are seen in either breast. IMPRESSION: INCOMPLETE: NEEDS ADDITIONAL IMAGING EVALUATION No mammographic evidence of malignancy. Recommend further evaluation with targeted breast ultrasound, which will immediately follow this exam. Based on the Tyrer Cuzick model (a risk assessment model) the patients lifetime risk is 0.5% and her 10 year risk is 0.0%. According to the ACR, ACS, and NCCN guidelines, an annual breast MRI exam alex g with mammogram is recommended if the patients lifetime risk is 20% or greater. This exam was interpreted at Station ID: [id number]. NOTE: For mammograms, a report in lay terms will be sent to the patient. Approximately 15% of breast malignancies will not be visualized mammographically. In the management of a palpable breast mass, a negative mammogram must not discourage biopsy of a clinically suspicious lesion. Electronically Signed By: Indigo Chapman M.D., PH.D eb/:03/08/2023 10:54:00 ACR BI-RADS Category 0: Incomplete 3340F PARENCHYMAL PATTERN: (D) - The breast(s) demonstrate(s) heterogeneously dense fibroglandular parenchy ma. BI-RADS CATEGORY: (0) - 0 Ultrasound [id number] Immediate follow-up LATERALITY: (B)
== END 2023-03-08 09:42 | disposition home or self-care (01) ==
LOC: DI 09:41
PROVIDERS: ATTEND Registered Nurse
DX: N64.4 Mastodynia (principal); R92.333 Mammographic heterogeneous density, bilateral breasts

== ENCOUNTER 2023-05-09 12:49 | Outpatient (CLI) | payer MEDICARE, MEDICAID ==
--- NOTE | 2023-05-09 14:14 | XRAY Report ---
PROCEDURE: Elbow 3+V LT INDICATIONS: ULNAR NEUROPATHY TECHNIQUE: 3 views of the elbow were acquired. COMPARISON: None. FINDINGS: Bones: No fractures or dislocations. No suspicious bony lesions. Radial head spur is present. Art hritic changes are present at the elbow. Soft tissues: No effusion. No suspicious soft tissue calcifications or masses. IMPRESSION: Radial head spur as well as arthritic changes at the elbow. Reviewed by: Miya Lloyd MD on 05/09/2023 2:13 PM PST Approved by: Miya Lloyd MD on 05/09/2023 2:13 PM PST Station ID: [id number]
--- NOTE | 2023-05-09 14:15 | XRAY Report ---
PROCEDURE: Shoulder 2+V RT INDICATIONS: ROTATOR CUFF DEFICIT TECHNIQUE: 3 views of the shoulder were acquired. COMPARISON: None. FINDINGS: Bones: No fractures or dislocations. No suspicious bony lesions. Visualized ribs appear intact. Moderate to severe acromioclavicular as well as glenohumeral arthritic changes. Prominent humeral ost eophytes as well as subchondral sclerosis and periarticular lucencies are present. Soft tissues: No suspicious soft tissue calcifications. The visualized lungs are within normal limi ts. IMPRESSION: Prominent acromioclavicular and glenohumeral arthritic change. Reviewed by: Miya Lloyd MD on 05/09/2023 2:13 PM PST Approved by: Miya Lloyd MD on 05/09/2023 2:13 PM PST Station ID: [id number]
== END 2023-05-09 12:50 | disposition home or self-care (01) ==
LOC: DI.S 12:49
PROVIDERS: ATTEND Internal Medicine
DX: G56.20 Lesion of ulnar nerve, unspecified upper limb (principal); M25.819 Other specified joint disorders, unspecified shoulder; M19.011 Primary osteoarthritis, right shoulder; M77.8 Other enthesopathies, not elsewhere classified

== ENCOUNTER 2023-06-05 13:18 | Outpatient (CLI) | payer MEDICARE, MEDICAID ==
[2023-06-05 19:54] LABS: ESTIMATED AVERAGE GLUCOSE 174 mg/dL (70-100); HEMOGLOBIN A1c% 7.7 % (4.27-6.07)
== END 2023-06-05 13:19 | disposition home or self-care (01) ==
LOC: LAB.S 13:18
PROVIDERS: ATTEND Nurse Practitioner Family
DX: E11.42 Type 2 diabetes mellitus with diabetic polyneuropathy (principal)
CPT/HCPCS: 36415; 83036

== ENCOUNTER 2023-12-26 00:20 | Outpatient (CLI) | payer MEDICARE, MEDICAID | END 2023-12-26 23:59 | disposition left against medical advice (07) | LOC: EMS 00:20 | DX: Z03.89 Encounter for observation for other suspected diseases and conditions ruled out (principal); Z91.81 History of falling ==

== ENCOUNTER 2023-12-26 12:49 | Outpatient (CLI) | payer MEDICARE, MEDICAID | END 2023-12-26 23:59 | disposition short-term general hospital (02) | LOC: EMS 12:49 | DX: R53.1 Weakness (principal); M25.562 Pain in left knee; R29.6 Repeated falls | CPT/HCPCS: A0425; A0429 ==

== ENCOUNTER 2023-12-27 08:28 | Outpatient (CLI) | payer MEDICARE, MEDICAID | END 2023-12-27 08:29 | disposition left against medical advice (07) | LOC: EMS 08:28 | DX: M54.50 Low back pain, unspecified (principal) ==